=== PATIENT | male | born 1970 | race Caucasian/White ===

== ENCOUNTER 2020-04-17 15:09 | Outpatient (REF) | payer BC, SELFPAY ==
[2020-04-20 20:34] LABS: Patient Race White; SARS-CoV-2 RNA Undetected (Undetected); SARS-CoV-2 Specimen Source Nasopharynx
== END 2020-04-17 15:29 ==
LOC: NCHCN 15:09
PROVIDERS: PCP Nurse Practitioner Family; Visit Provider Family Medicine
DX: Z20.828 Contact with and (suspected) exposure to other viral communicable diseases (principal)
CPT/HCPCS: U0003

== ENCOUNTER 2021-06-22 16:18 | Outpatient (REF) | payer BC, SELFPAY ==
[2021-06-22 15:46] LABS: Calculated LDL 122 mg/dL (<100); Cholesterol 225 mg/dL (<200); HDL Cholesterol 60 mg/dL (40-60); Hemoglobin A1C 5.5 % (<5.7); TSH (W/Ref FT4) 2.07 uIU/mL (0.36-3.74); Triglyceride 215 mg/dL (<150)
[2021-06-23 09:57] LABS: Hepatitis C Ab w Rflx HCV PCR Negative (Negative)
[2021-06-23 10:33] LABS: HBs Antibody, Quant 5.5 mIU/mL (See Note); Hepatitis B Surface Ab Negative (See Note)
[2021-06-23 10:48] LABS: HIV-1/2 Ag & Ab Screen Negative (Negative); Hepatitis B Surface Ag Negative (Negative)
[2021-06-23 11:39] LABS: Hep A Total Ab w Rflx IgM Negative (Negative)
== END 2021-06-22 16:19 | disposition home or self-care (01) ==
LOC: LBN 16:18
PROVIDERS: PCP Nurse Practitioner Family; Visit Provider Family Medicine
DX: Z00.00 Encounter for general adult medical examination without abnormal findings (principal); Z11.4 Encounter for screening for human immunodeficiency virus [HIV]; Z11.59 Encounter for screening for other viral diseases
CPT/HCPCS: 80061; 86706; 86709; 86803; 87340; 87389; 83036; 84443

== ENCOUNTER 2021-09-07 14:57 | Outpatient (REF) | payer SELFPAY ==
--- NOTE | 2021-09-07 15:00 | RT.EKG_ITS ---
APPROVED REPORT Exam: Resting ECG Reason for Exam: Baseline screening, [employer] Pre-Employment Patient Location: O HR:61 bpm ECG Measurements Heart Rate 61 AXIS WI 172 P 30 QRSd 100 QRS -3 QT 398 T 19 QTc 402 Conclusion Sinus rhythm...normal P axis, V-rate 60- 99 Normal Electrocardiogram
--- NOTE | 2021-09-08 15:28 | W.PFT ---
Date of service: 09/07/21 Time of Service: 15:03 Pulmonary Function Test Result Requesting Provider Celena Quiroga Indications: Pre-employment screening Interpretation Spirometry: There is no airflow limitation. Impression Normal spirometry Clinical Correlation therefore is recommended.
== END 2021-09-07 14:58 | disposition home or self-care (01) ==
LOC: RT 14:57
PROVIDERS: PCP Nurse Practitioner Family; Visit Provider Nurse Practitioner Family
DX: Z02.1 Encounter for pre-employment examination (principal)
CPT/HCPCS: 94010; 93005; 93010

== ENCOUNTER 2021-09-08 02:29 | Outpatient (CLI) | payer BC, SELFPAY ==
[2021-09-08 16:26] LABS: HCT 43.5 % (40.0-50.0); HGB 14.4 g/dL (13.5-17.5); MCH 29.9 pg (27.0-33.0); MCHC 33.1 % (32.0-36.0); MCV 90.2 fL (80-95); MPV 9.1 fL (8.0-11.0); Platelet Count 225 10^3/uL (130-400); RBC 4.82 10^6/uL (4.36-5.78); RDW 11.9 % (11.8-14.1); RDW-SD 39.1 fL
[2021-09-08 16:37] LABS: Bilirubin Negative (Negative); Blood Trace-intact (Negative); Clarity Clear (Clear); Glucose Negative (Negative); Ketones Negative (Negative); Leukocyte Esterase Negative (Negative); Nitrite Negative (Negative); Specific Gravity >= 1.030 (1.005-1.025); Urobilinogen 0.2 EU/dL (Up TO 0.2)
[2021-09-08 16:43] LABS: Bacteria Negative HPF (Negative); C & S Indicated? No; Casts Negative LPF (Negative); Crystals Negative HPF (Negative); Epithelial Cells Few HPF (Negative); Mucus Negative (Negative); Other Cells Negative (Negative); RBC 0-2 HPF (0-2); WBC Negative HPF (0-5)
[2021-09-08 18:02] LABS: ALT 35 U/L (16-63); AST 21 U/L (15-37); Alkaline Phosphatase 77 U/L (46-116); Anion Gap 8.7 mmol/L (3-11); BUN 25 mg/dL (7-18); Bilirubin, Direct 0.1 mg/dL (0.0-0.2); Bilirubin, Total 0.5 mg/dL (0.2-1.0); CO2 28.3 mmol/L (21.0-32.0); CREATININE 1.1 mg/dL (0.70-1.30); Calcium 9.4 mg/dL (8.5-10.1); Chloride 102 mmol/L (98-107); Glucose 101 mg/dL (74-106); Potassium 3.7 mmol/L (3.5-5.1); Sodium 139 mmol/L (136-145); Total Protein 7.1 g/dL (6.4-8.2)
== END 2021-09-08 02:30 | disposition home or self-care (01) ==
LOC: LBO 02:29
PROVIDERS: PCP Nurse Practitioner Family; Visit Provider Nurse Practitioner Family
DX: Z13.9 Encounter for screening, unspecified (principal)
CPT/HCPCS: 36415; 80048; 80076; 85027; 81003; 81015

== ENCOUNTER 2022-01-25 17:47 | Outpatient (REF) | payer BC, SELFPAY ==
--- NOTE | 2022-01-25 17:15 | SKI_PTH ---
PATIENT: Williams Heller LOC: [facility] #:[id number] AGE/SX: 51/M ROOM: RE01/25/[address]: Tariq Coffey : 1970 BED: DIS: 01/25/2022 SPEC #: [id number] RECD: 01/26/22 08:44 STATUS: MOLLY REQ #: [id number] RANDY: 01/25/22 17:[address]: Tariq Coffey DEPT: Surgical Specimen RECD BY: Nancy Franz ENTERED: 01/26/22 08:45 SP TYPE: RAAD OT DR: Carissa Rhoades Tissues: 1 - SKIN BIOPSY(SHAVE/PUNCH) Procedures: SKIN LEVEL 4 Comments: [id number]
== END 2022-01-25 17:48 | disposition home or self-care (01) ==
LOC: LBN 17:47
PROVIDERS: PCP Nurse Practitioner Family; Visit Provider Family Medicine
DX: L43.9 Lichen planus, unspecified (principal)
CPT/HCPCS: 88305

== ENCOUNTER 2022-04-01 09:11 | Day surgery (SDC) | payer BC, SELFPAY ==
--- NOTE | 2022-03-31 19:01 | COLE_ITS ---
Colonoscopy Report Date of procedure: 04/01/22 Pre-op diagnosis general: CRC screen Post-op diagnosis procedure note: other (Diverticula) Surgeon: Keshia Fairbanks Anesthesia Type: General:No Airway Estimated blood loss (mL): 0 Pathology: none sent Complications: None Disposition: same day Prep: Miralax/Dulcolax Retraction Time: 8 Procedure Description: After informed consent was obtained the patient was taken to the procedure room and placed in a left decubitous position. Monitors were applied and a time out was done. The patients name, date of , procedure, allergies to medications and metal in their body was reviewed. The patient was then sedated. Once sedat ed and comfortable a rectal exam was done. External exam was normal. Internal exam revealed a normal sphincter tone and no palpable masses. The prostate nl The scope was then introduced and retrofelexed. No internal hemorrhoids were identified. The scope was then advanced to the cecum without difficulty. The TI and appendiceal orifice were identified. The prep was BB PS 2 in all segments for total of 6. The scope was then slowly retracted over 8 minutes back into the rectum. There are no polyps visualized today. He has minor diverticular disease that does extend all the way over to the transverse colon. There is no signs of active bleeding or infection. The mucosa is pink and healthy with a normal vascular pattern.. The scope was removed and the patient was woken up and taken back to Same day surgery in stable condition. The patient tolerated the procedure well and there were no immediate complications. Follow up: The patient should follow up in 10 years unless they develop changes in bowel habits or other new gastrointestinal complaints.
--- NOTE | 2022-03-31 19:02 | PDOC.DSDIS_ITS ---
Discharge Plan Disposition Patient Disposition: HOME Condition: Good Discharge Details Reason For Visit: colon scope Attending Provider: Keshia Fairbanks Primary Care Provider: Tariq Coffey Home Meds and New Rx's Prescriptions: Continued bupropion HCl 150 mg tablet extended release 24 hr 150 mg PO QAM Discontinued bisacodyl [Dulcolax (bisacodyl)] 5 mg tablet,delayed release (DR/EC) 5 mg PO ONCE Qty: 4 0RF Rx Instructions: Take according to provider's instructions for colonoscopy prep. polyethylene glycol 3350 17 gram/dose powder 17 g PO ONCE Qty: 238 0RF Rx Instructions: To be taken as directed by prescriber's office for colonoscopy prep. Discharge Instructions Additional Instructions: DSU Colonoscopy Post- Op Instructions Instructions for Everyone who is given Anesthesia: For your safety, please do the following for the next twenty-four (24) hours: *Do Not operate a motor vehicle (car, truck, motorcycle, etc.) *Do Not drink alcoholic beverages or use any recreational drugs for the first 24 hours or while taking pain medications. The medications in your body may have a reaction that can be dangerous. *Do Not make any important decisions or sign any important papers. Findings: -Minor diverticula. Make sure you are moving your bowels on a regular basis and not straining to go to the bathroom Follow up: Repeat colonoscopy in 10 years time 1. No lifting over 20 pounds or strenuous activity for the first 24 hours after your procedure. After 24 hours there are no restrictions on your activity but you may feel fatigued for a few days. 2. After you arrive home you may have a light meal and return to your normal diet as you can tolerate it without feeling sick to your stomach. 3. You may have a bloated, gaseous feeling in your belly (abdomen) after a colonoscopy. Passing gas and belching will help. Walking or lying down on your left side with your knees flexed may relieve the discomfort. Call the office at [phone] (Office) or [phone] (Hospital) right away if you notice any of the following: a.Vomiting of blood or ?coffee ground stools?. b.Rectal bleeding 1Tbsp, blood clots or continuous bleeding. c.Severe belly (abdominal) pain. d.A hard distended belly (abdomen) and an inability to pass gas. 4. Please don?t expect to have a normal BM (bowel movement) for 2-3 days after your procedure. 5. If there are questions regarding the findings of your procedure, please contact your doctor 6. If you are unable to contact your doctor with a problem, contact the hospital at [phone]. 7. Continue all your regular medications unless directed otherwise. I understand the above instructions and have no questions. Signature of Patient or Adult Escort Name of Responsible Adult Escort Signature of Nurse Date/Time Activity:: see above Diet:: see above Discharge Orders Discharge Orders: Discharge Order (Routine); Ordered 03/31/22 Ordered By: Keshia Fairbanks DS: Diagnosis Discharge Diagnosis (1) Diverticula of colon: Status: Acute
[2022-04-01 09:15] VITALS: BP 129/88; PULSE 70; RESP 18; TEMP 36.1; O2SAT 100
[2022-04-01] MEDS: Lactated Ringers 1,000 ML 80 ML IV (09:22)
--- NOTE | 2022-04-01 09:49 | W.ANESPRE ---
General Info Date of Service Date Performed: 04/01/22 Height: 5 ft 10 in Weight: 108.6 kg Body Mass Index (BMI): 34.3 Surgical Procedure: Operation Date: 04/01/22 09:50 Proposed Procedure Side Surgeon roscoe Fairbanks DO Meds Allergies and Home Medications Allergies Allergy/AdvReac Type Severity Reaction Status Date / Time No Known Allergies Allergy Verified 04/01/22 09:28 Home Medication Medication Instructions Recorded bupropion HCl 150 mg 24 hr tablet, 150 mg PO QAM 08/19/21 extended release Current Visit Medications: Current Medications Generic Name Dose Route Start Last Admin Trade Name Freq PRN Reason Stop Dose Admin Hyoscyamine Sulfate 0.125 mg 03/31/22 19:00 Hyoscyamine 0.125 Mg Sl/Oral/Chew SL DIRECTED PRN Ringer's Solution 1,000 mls @ 80 mls/hr 04/01/22 06:00 04/01/22 09:22 IV 04/30/22 23:59 80 mls/hr INFUSION TASIA Administration IV Miscellaneous Supplies 1 each 04/01/22 06:00 Iv Access IV 04/30/22 23:59 DIRECTED TASIA Ondansetron HCl 4 mg 03/31/22 19:00 Ondansetron 4 Mg/2 Ml Vial IVP Q4H PRN PRN Nausea / Vomiting Sodium Chloride 0 ml 04/01/22 06:00 Normal Saline Flush 10 Ml Syr IV 04/30/22 23:59 PRN PRN Sodium Chloride 0 ml 04/01/22 06:00 Normal Saline 10 Ml Vial IJ 04/30/22 23:59 DIRECTED PRN Sterile Water 0 ml 04/01/22 06:00 Water,Injection,Sterile 10 Ml Vial IJ 04/30/22 23:59 DIRECTED PRN PFSH Active Problems Active Problems: Problem Status Onset Code Screening due Z13.9 Medical History Medical History Depression Palpitations Per pt. stated he was drinking too much coffee, and hasn't had any issues in 6-8 months Sebaceous cyst Skin lesion Sleep apnea Tobacco Smoking/Tobacco Use Status: Never Alcohol Alcohol Intake: current Alcohol intake frequency: a few times a month Substance Use Substance use: Never Substance use type: does not use Vital Signs and Lab Results Vital Signs Most Recent Vital Signs in EMR: Most Recent Vital Signs Temp Pulse Resp BP Pulse Ox 36.1 C L 70 18 129/88 100 04/01/22 09:15 04/01/22 09:15 04/01/22 09:15 04/01/22 09:15 04/01/22 09:15 Lab Results Blood Type / Crossmatch: No Data to Display Complete Blood Count: No Data to Display Complete Metabolic Panel: No Data to Display Liver Function Panel: No Data to Display Coagulation Panel: No Data to Display Cardiac Panel: No Data to Display Arterial Blood Gas: No Data to Display Venous Blood Gas: No Data to Display Pancreas Panel: No Data to Display Thyroid Panel: No Data to Display Infectious Disease: No Data to Display Blood Cultures: No Data to Display Toxicology Panel: No Data to Display Imaging and Studies Imaging and Studies Study information below may be from another EMR and interpreted by another provider. Please see original notes in EMR for more complete details. EKG Summary: 09/07/2021: Conclusion Sinus rhythm...normal P axis, V-rate 60- 99 Normal Electrocardiogram Pulmonary Function Summary: 09/08/2021: Pulmonary Function Test Result Requesting Provider Celena Quiroga Indications: Pre-employment screening Interpretation Spirometry: There is no airflow limitation. Impression Normal spirometry Clinical Correlation therefore is recommended. Anesthesia Assessment and Plan Anesthesia History Personal History: No History of Anesthesia Complications Family History: No Family History of Anesthesia Complications Exercise Tolerance Exercise Tolerance: Metabolic Equivalents>4 Pertinent Negatives Pertinent Negatives: No Symptoms of GERD, No Major Cardiovascular Symptoms or Complaints and No Major Pulmonary Symptoms or Complaints Cardiac & Pulmonary Exam Cardiac Exam: Normal S1/S2 Heart Sounds Pulmonary Exam: Clear Bilateral Breath Sounds Implantable Cardiac Device Does patient have a Pacemaker or an ICD?: No Airway Exam Known Difficult Airway: No Mallampati Class: 2 Mouth Opening: Normal (> 3cm) Thyromental Distance: Greater than 3 cm Neck Range of Motion: Full ROM Neck Circumference: Thick Teeth Condition: Normal Dentition ASA Classification ASA Score: ASA 2 Emergency Case?: No NPO Status NPO Status: NPO Clears >2 hours, Solids >8 hours Anesthesia Plan Resuscitation Status: Full Code Anesthesia Technique: General Anesthesia Airway Planned: Natural Airway Monitors Used: Standard Monitors
[2022-04-01 09:53] VITALS: BMI 34.3
[2022-04-01 10:57] VITALS: BP 109/74; PULSE 59; RESP 18; TEMP 36.4; O2SAT 95
--- NOTE | 2022-04-01 11:15 | W.ANESPOSTOP ---
Postoperative Evaluation Date, Time and Location Date Performed: 04/01/22 Time Performed: 11:15 Patient Location: Day Surgery Unit Vital Signs Most Recent Imported Vital Signs: Most Recent Vital Signs Temp Pulse Resp BP Pulse Ox 36.4 C L 59 L 18 109/74 95 04/01/22 10:57 04/01/22 10:57 04/01/22 10:57 04/01/22 10:57 04/01/22 10:57 Pain Score Most Recent Pain Score: Most Recent Pain Score Pain Level 0 04/01/22 10:57 Assessment Mental Status: Awake (Alert & Oriented to Patient Baseline) Airway and Respiratory Function: Patent airway with normal (patient baseline) respiratory exam Cardiovascular Function: Hemodynamically Stable Hydration Status: Adequately Hydrated Nausea & Vomiting: No Nausea or Vomiting Pain: Pt. Denies Any Pain Peripheral Nerve Block: Patient did not receive a nerve block
[2022-04-01 11:24] VITALS: BP 112/71; PULSE 52; RESP 16; TEMP 37; O2SAT 95
== END 2022-04-01 12:05 | disposition home or self-care (01) ==
PROVIDERS: PCP Family Medicine; Visit Provider Surgery
PROC: 0DJD8ZZ Inspection of Lower Intestinal Tract, Via Natural or Artificial Opening Endoscopic (ICD-10-PCS; CPT 45378; principal; 2022-04-01 09:45)
DX: Z12.11 Encounter for screening for malignant neoplasm of colon (principal); K57.30 Diverticulosis of large intestine without perforation or abscess without bleeding
CPT/HCPCS: 45378

== ENCOUNTER 2023-01-23 16:17 | Emergency (ER) | payer BC, SELFPAY ==
[2023-01-23] VITALS (75 sets, daily range): BP systolic 112–149; BP diastolic 68–98; PULSE 62–112; RESP 12–25; TEMP 37.2; O2SAT 92–100
--- NOTE | 2023-01-23 16:15 | RT.EKG_ITS ---
APPROVED REPORT Exam: Resting ECG Reason for Exam: chest pain Patient Location: E HR:110 bpm ECG Measurements Heart Rate 110 AXIS DE 166 P 32 QRSd 97 QRS -15 QT 312 T 14 QTc 423 Conclusion Sinus tachycardia...rate> 99 Probable left atrial enlargement...P >50mS, <-0.10mV V1 Narrow complex sinus tachycardia at a rate of 110. Left axis deviation no signs of LVH based on volt age criteria. No ST segment abnormalities. T wave flattening in the aVF. Compared to prior dated l ast year sinus tachycardia is new as his T wave flattening in aVF.
--- NOTE | 2023-01-23 16:19 | W.ED.GENAD ---
Discharge Plan Disposition Patient Disposition: Home Discharge Details Clinical Impression: Chest pain, unspecified, Near syncope Primary Care Provider: Tariq Coffey ED Provider: Tariq Alegre Home Meds and New Rx's Prescriptions: Continued bupropion HCl 150 mg tablet extended release 24 hr 150 mg PO QAM Discharge Instructions Additional Instructions: Please read all of the information that accompanies these instructions. You were seen in the emergency department for your chest discomfort. Your EKG showed no sign of a heart attack. Your CAT scan showed no sign of any damage to the large blood vessels in your chest. Please schedule an appointment with your primary care provider later this week. Please return to the emergency department if pass out develop chest pain with any sweating or if you have any other concerns. As we discussed, you may benefit from a echocardiogram of your heart which is an ultrasound. You may also benefit from a sleep study. Medical Decision Making This is an overall well-appearing normothermic and tachycardic 52-year-old male discomfort in his chest and abdomen concerning for the possibility of aortic dissection. Patient does have elevated BMI making him high risk for ACS. Will trend troponins in setting of his nonischemic ECG. No vomiting to suggest esophageal rupture. Given his epigastric discomfort we will also obtain a lipase to assess for pancreatitis. No significant shortness of breath to suggest PE. Not an alcoholic to suggest increased risk for cirrhosis. No rash to abdomen to suggest zoster. Clear lungs and no history of trauma so I am not concerned for pneumothorax. Not hypotensive to suggest increased risk for tamponade. No pain out of proportion to suggest necrotizing soft tissue infection. Will reassess following labs and CT scan. No tick exposures nor first-degree AV block so my suspicion is low for Lyme carditis. No fevers to suggest COVID. We will treat with Mylanta and famotidine in the event that there is a component of reflux. Patient also endorses history of waking up at night feeling short of breath. It is certainly possible that he could have obstructive sleep apnea given his elevated BMI. Obstructive sleep apnea certainly could lead to pulmonary hypertension which could cause shortness of breath. He would likely benefit from an echocardiogram and/or possibly pulmonary function tests. 6:25 PM Comprehensive metabolic panel with no ANGELA mild hyperglycemia no anion gap to suggest DKA. Reassuring LFTs. Normal lipase. Initial negative normal troponin. CBC with no anemia thrombocytopenia nor leukocytosis. I have advised patient to follow-up with his primary care provider next week. 8:10 PM Repeat troponin negative. Patient felt slightly improved following famotidine and Mylanta. Advised PCP follow-up and gave return indications including any shortness of breath syncope falls chest pain associated with diaphoresis or any chest pain associated with arm radiation. In the setting of syncope I considered: High risk features: 1. Age of the patient (elderly a greatest risk) 2. Syncope during exertion 3. Family history of sudden [place] syncope rule: 1. History of CHF 2. Hematocrit < 30 3. EKG abnormalities 4. Present shortness of breath 5. Systolic blood pressure less than 90 Cardiac arrhythmia/EKG or abnormalities considered: 1. ACS: No ST changes 2. Tachy-azul: No blocks 3. WPW: No delta wave 4. Brugada: No RSR'; R-bundle appearance 5. HCM: No LVH; needle Qs/ T-wave inversions 6. Short/ Long QT: 300 < QTc < 500; no family hx 7. Arrhythmogenic Right Ventricular Dysplasia: No epsilon wave, no inverted Ts in anterior precordium I am HEART SCORE Chest pain Diagnostic Protocol: [-History/Physical/Gestalt: Slightly Suspicious (0)] [- EKG: Nonspecific repolarization (+1)] [- AGE: 45-65 (+1)] [- RISK FACTORS: 1 - 2 risk factors (+1)] [-TROPONIN: <= normal limit (0)] - TOTAL SCORE: 3 - Risk Factors: DM, current or recent smoker, HTN, HLD, family hx of CAD, obesity - INTERPRETATION: With a total score of 3 or less, risk of major cardiac event within six weeks 1.7%, likely lower with two negative troponins. [I explained to the patient that the risk of subsequent major cardiac event within 1 month is not 0, however risk predicted to be less than 2%. Patient verbalized understanding, accepts this risk and shared and the decision for discharge with PCP follow-up for further evaluation and management. They understand to return to the ED immediately with any worsening symptoms, new symptoms or other concerns.] HPI General Date/Time Provider Initiated Documentation: 01/23/23 16:19. HPI Narrative: This is a previously healthy 52-year-old male on bupropion presenting to the emergency department in the setting of chest pain which he describes as indigestion and a pressure. He reports that he has also had near syncope. He was at work yesterday and felt tunnel vision. He was able to lower himself to the ground he did not fall nor strike his head. 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 He endorses indigestion for the past several weeks. He has no history of hypertension hyperlipidemia nor diabetes. There is no family history of premature coronary artery disease. He has not been short of breath nor had any cough. He drinks alcohol approximately once a week but denies routine tobacco and illicits. He has not is taken no recent falls. He denies any vomiting. Related Data Home Medications Medication Instructions Recorded Confirmed bupropion HCl 150 mg 24 hr tablet, 150 mg PO QAM 08/19/21 01/23/23 extended release Allergies Allergy/AdvReac Type Severity Reaction Status Date / Time No Known Allergies Allergy Verified 01/23/23 16:24 PFSH All Active Problems (Updated 01/23/23 @ 20:40 by Tariq Alegre MD) Chest pain, unspecified (Acute) Near syncope (Acute) Diverticula of colon (Acute) repeat CE in 2031 Medical History (Updated 01/23/23 @ 20:40 by Tariq Alegre MD) Depression Palpitations Per pt. stated he was drinking too much coffee, and hasn't had any issues in 6-8 months Sebaceous cyst Skin lesion Sleep apnea Social History Smoking/Tobacco Use Status: Never Smoking risk assessment performed?: Yes Alcohol Intake: current Alcohol Intake frequency: a few times a month Alcohol type: beer Drug use: Never Substance use type: does not use Housing: house Do you feel safe at home: Yes Do you feel safe in your relationship?: Yes Exam Narrative Exam Narrative: General: Well-appearing in no acute distress speaking in complete sentences. Head: Normocephalic, atraumatic. Eye: Pupils equal, round reactive to light. Extraocular eye movements intact. No conjunctival injection. No scleral icterus. Ear, nose, mouth, throat: Grossly normal inspection. Normal voice, handling secretions normally. Neck: Trachea midline. Cardiovascular: Well-perfused distal extremities. Regular rate and rhythm Respiratory: Nonlabored respiration. Clear lungs bilaterally. Soft nontender abdomen. Gastrointestinal: Nondistended abdomen. Musculoskeletal: No edema. Moving all 4 extremities spontaneously. Skin: Normal for age and race, grossly normal temperature and turgor. No acute rash. Neurologic: Alert and appropriate, no apparent acute deficits. Psychiatric: Mood and manner are appropriate. Grooming and personal hygiene are appropriate.
--- NOTE | 2023-01-23 16:30 | DI.CT_ITS ---
Exam(s) CT THORAX ABD/PEL CTA EXAM: CT THORAX ABD/PEL CTA CLINICAL HISTORY: Concern for dissection with chest pain and abdomen. TECHNIQUE: Imaging Protocol: Axial CT angiography was performed with multi-slice acquisition and mu lti-planar and/or 3D reconstructions. CONTRAST MATERIAL: Intravenous: Omnipaque 350 Contrast volume:100 ml Intravenous: Omnipaque 350 Contrast volume:125 mL contrast route:IV - COMPARISON: CR XR CHEST 2V PA LATERAL from 09/08/2021 FINDINGS: CHEST: Pulmonary Arteries: No evidence of filling defect to suggest pulmonary emboli. Tracheobronchial tree: Patent where visualized. Mediastinum and Breanna: No dominant adenopathy or fluid collection. Pulmonary parenchyma: No consolidation or dominant measurable mass. Pleura: No effusion or pneumothorax. Heart: The heart is not dilated. No coronary artery calcifications are seen. Aorta: Thoracic aorta non-dilated. No visible atherosclerotic changes. No evidence of dissection Bones: Degenerative changes in the thoracic spine Tubes, Catheters, and Lines: None ABDOMEN: Liver: Mildly enlarged. Severe hepatic steatosis. No measurable mass. Portal, Superior Mesenteric, and Splenic Veins: Unremarkable. Gallbladder and Biliary Tract: No radiodense calculus or dilation. Pancreas: Normal density, no abnormal calcifications or inflammatory process. Spleen: Normal. Adrenals: No masses seen. Kidneys: Normal size, contour and axis. No radiodense stones or obstructive uropathy. No masses seen. Vasculature:: Abdominal aorta non-dilated. No visible atherosclerotic changes. No evidence of dis section. Celiac axis SMA, DARON and renal arteries normal diameter. Iliac and upper femoral arteries normal diameter. Bowel: Mild diverticulosis. No evidence of diverticulitis. No obstruction or bowel wall thickening. Appendix is unremarkable. Peritoneal Cavity: No ascites, collection or mesenteric inflammatory response. Lymph Nodes: Within normal limits. Bones: Unremarkable. Soft Tissues: Unremarkable. PELVIS: Bladder: Symmetric distention, no gross wall thickening. Reproductive Organs: Unremarkable as visualized. Lymph Nodes: Within normal limits. Bones: Within normal limits. IMPRESSION: 1. No evidence of pulmonary embolism. . No evidence of aortic dissection or aneurysm. 2. No acute abnormality in the chest abdomen or pelvis.. RADIATION DOSE DELIVERED: 1,267.82mGy.cm Total DLP 1,267.82mGy.cm Total DLP DATA REPOSITORY: All CT scans at this facility are submitted to the National Radiology Data Registry (NRDR) Dose Index Registry (DIR) with the [employer] (ACR). RADIATION OPTIMIZATION: All CT scans at this facility use at least one of these dose optimization te chniques: automated exposure control; mA and/or kV adjustment per patient size (includes targeted exa ms where dose is matched to clinical indication); or iterative reconstruction.
[2023-01-23 16:45] LABS: Abs Immature Grans 0.03 10^3/uL (0.0-0.06); Absolute Basophil Count 0.03 10^3/uL (0.0-0.2); Absolute Eosinophil Count 0.12 10^3/uL (0.0-0.7); Absolute Lymphocyte Count 3.01 10^3/uL (1.2-3.4); Absolute Monocyte Count 0.56 10^3/uL (0.1-0.8); Absolute Neutrophil Count 4.26 10^3/uL (1.2-6.7); Basophils % 0.4; Eosinophils % 1.5; HGB 16.2 g/dL (13.5-17.5); Immature Grans % 0.4; Lymphocytes % 37.6; MCH 29.6 pg (27.0-33.0); MCHC 34.5 % (32.0-36.0); MCV 86 fL (80-95); MPV 8.8 fL (8.0-11.0); Neutrophils % 53.1; Platelet Count 262 10^3/uL (130-400); RBC 5.48 10^6/uL (4.36-5.78); RDW 11.9 % (11.8-14.1); RDW-SD 37.2 fL; WBC 8.01 10^3/uL (4.4-10.8)
[2023-01-23] MEDS: Normal Saline 500 ML IV (16:45)
[2023-01-23 17:03] LABS: ALT 34 U/L (16-63); AST 18 U/L (15-37); Albumin 4.2 g/dL (3.4-5.0); Alkaline Phosphatase 87 U/L (46-116); Anion Gap 10.9 mmol/L (3-11); BUN 27 mg/dL (7-18); Bilirubin, Total 0.5 mg/dL (0.2-1.0); CO2 24.1 mmol/L (21.0-32.0); CREATININE 1.3 mg/dL (0.70-1.30); Chloride 103 mmol/L (98-107); Glucose 118 mg/dL (74-106); Lipase 71 U/L (16-77); Potassium 3.7 mmol/L (3.5-5.1); Sodium 138 mmol/L (136-145); Troponin I < 50 ng/L (<or=60)
[2023-01-23] MEDS: Omnipaque 350 MG/ML 50 ML BTL 25 ML IJ (18:08)
[2023-01-23] MEDS: Normal Saline - Diluent 50 ML VIAL IJ (18:08)
[2023-01-23] MEDS: Omnipaque 350 MG/ML 100 ML BTL IJ (18:24)
[2023-01-23] MEDS: Normal Saline Flush 10 ML SYR IVP (18:24)
--- NOTE | 2023-01-23 18:40 | DI.VRAD_ITS ---
PROCEDURE INFORMATION: Exam: CTA Chest With Contrast CTA Abdomen and Pelvis With Contrast Exam date and time: 01/23/2023 18:11 Age: 52 years old Clinical indication: Other: Concern for dissection with chest pain and abdomen TECHNIQUE: Imaging protocol: Computed tomographic angiography of the chest with contrast. Exam focused on the arteries. Computed tomographic angiography of the abdomen and pelvis with contrast. Exam focused on the arteries. 3D rendering (Not supervised by radiologist): MIP and/or 3D reconstructed images were created by the technologist. Radiation optimization: All CT scans at this facility use at least one of these dose optimization techniques: automated exposure control; mA and/or kV adjustment per patient size (includes targeted exams where dose is matched to clinical indication); or iterative reconstruction. Contrast material: OMNI 350; Contrast volume: 125 ml; Contrast route: INTRAVENOUS (IV); COMPARISON: CR XR CHEST 2V PA LATERAL 09/08/2021 16:03 FINDINGS: VASCULATURE: Pulmonary arteries: No pulmonary emboli. Aorta: No aortic aneurysm. No aortic dissection. Celiac trunk and mesenteric arteries: No occlusion or significant stenosis. Renal arteries: No occlusion or significant stenosis. Right iliac arteries: No occlusion or significant stenosis. Left iliac arteries: No occlusion or significant stenosis. CHEST: Lungs: No airspace consolidation. Pleural spaces: No pneumothorax. No pleural effusion. Heart: No cardiomegaly. No pericardial effusion. ABDOMEN AND PELVIS: Liver: Fatty liver with no mass lesions. Focal fatty sparing in the liver. Mild hepatomegaly. Gallbladder and bile ducts: No calcified stones. No ductal dilation. Pancreas: No mass. No ductal dilation. Spleen: Mild splenomegaly. Adrenal glands: No mass. Kidneys and ureters: No solid mass. No hydronephrosis. Stomach and bowel: Colonic diverticulosis without diverticulitis. No focal pathology in the small bowel. Appendix: No evidence of appendicitis. Intraperitoneal space: No free air. No significant fluid collection. Urinary bladder: No mass. Reproductive: Mild prostatic enlargement. Lymph nodes: No enlarged lymph nodes. Bones/joints: No acute fracture or subluxation. Soft tissues: Unremarkable. IMPRESSION: 1. No acute findings. 2. Incidental findings as described. Dictated and Authenticated by: Marium Valles MD. Ordering:RAMESH Potter MD
[2023-01-23] MEDS: Famotidine 20 MG/2 ML VIAL 40 MG IVP (18:58)
[2023-01-23] MEDS: Mylanta Suspension 30 ML CUP PO (19:00)
[2023-01-23 19:49] LABS: Troponin I < 50 ng/L (<or=60)
== END 2023-01-23 20:40 | disposition home or self-care (01) ==
PROVIDERS: Emergency Provider Emergency Medicine; PCP Family Medicine
DX: R55 Syncope and collapse (principal); R07.9 Chest pain, unspecified; R00.0 Tachycardia, unspecified; E11.65 Type 2 diabetes mellitus with hyperglycemia; I10 Essential (primary) hypertension; E78.5 Hyperlipidemia, unspecified; E66.9 Obesity, unspecified
CPT/HCPCS: 36415; 71275; 80053; 83690; 93005; 96361; 96374; 99285; 74174; 84484; 85025; 93010; 99283; J3490; Q9967

== ENCOUNTER → 2023-11-23 15:14 | Outpatient (CLI) | payer OTHER, SELFPAY ==
--- NOTE | 2023-11-23 | DI.RAD_ITS ---
Exam(s) XR LUMBAR SPINE COMPLETE EXAM: XR LUMBAR SPINE COMPLETE CLINICAL HISTORY: LOW BACK PAIN M54.50. TECHNIQUE: 2D digital imaging was performed. Five views. COMPARISON: CT CT THORAX ABD/PEL CTA from 01/23/2023 FINDINGS: BONES: No fracture or destructive lesion. Vertebral body heights are maintained. Moderate facet hype rtrophy identified 4 5 and L5-S1. No spondylolysis. DISKS: Mild narrowing of the L 3 4 through L5-S1 disc spaces. Small endplate osteophytes at these le vels. The remaining intervertebral disc spaces are maintained. ALIGNMENT: Lumbar spinal alignment is within normal limits. SOFT TISSUE: Normal. IMPRESSION: Degenerative changes, greatest of the facet joints at L4-5 and L5-S1. DATA REPOSITORY: RADIATION DOSE DELIVERED:
== END ==
PROVIDERS: PCP Family Medicine; Visit Provider Physician Assistant Medical
DX: M51.37 Other intervertebral disc degeneration, lumbosacral region (principal)
CPT/HCPCS: 72110

== ENCOUNTER → 2024-01-30 01:37 | Outpatient (CLI) | payer OTHER, SELFPAY ==
--- NOTE | 2024-01-30 08:00 | DI.MRI_ITS ---
Exam(s) MR LUMBAR SPINE WO EXAM: MR LUMBAR SPINE WO CLINICAL HISTORY: Persistent lumbar back pain with radiculopathy,m54.16. TECHNIQUE: Multiplanar multisequence MRI of the Lumbar spine was performed. COMPARISON: CR XR LUMBAR SPINE COMPLETE from 11/23/2023 FINDINGS: Bones: The last intervertebral disc space is designated the L5/S1 level for the numbering purpose of this ex amination. The vertebral body heights are well maintained. Alignment: Unremarkable. The marrow signal characteristics are unremarkable. Hemangioma L2 Cord: The conus tip ends at the T12 level. It is of normal size and signal intensity. T12-L1: No focal disc herniation is present. No central spinal canal stenosis.No neural foraminal st enosis. L1-2: No focal disc herniation is present. No central spinal canal stenosis.No neural foraminal sten osis. L2-3: No focal disc herniation is present. No central spinal canal stenosis.No neural foraminal solomon nosis. L3-4: Mild concentric disc bulging.No focal disc herniation is present. No central spinal canal solomon nosis.No neural foraminal stenosis. L4-5:Facet degenerative changes. No focal disc herniation is present. No central spinal canal steno sis.No neural foraminal stenosis. L5-S1: Mild facet degenerative changes.No focal disc herniation is present. No central spinal canal stenosis.No neural foraminal stenosis. The visualized SI joints and sacrum are unremarkable. Soft tissues: The paraspinal soft tissues are unremarkable. IMPRESSION: No evidence of disc herniation. Facet degenerative changes at L4-5 and L5-S1. No evidence of significant spinal stenosis or neurofor aminal narrowing. DATA REPOSITORY:
== END ==
PROVIDERS: PCP Student in an Organized Health Care Education/Training Program; Visit Provider Nurse Practitioner Family
DX: M54.16 Radiculopathy, lumbar region (principal)
CPT/HCPCS: 72148

== ENCOUNTER 2024-02-27 18:17 | Outpatient (REF) | payer BC, SELFPAY ==
[2024-02-27 15:38] LABS: Abs Immature Grans 0.01 10^3/uL (0.0-0.06); Absolute Basophil Count 0.03 10^3/uL (0.0-0.2); Absolute Eosinophil Count 0.06 10^3/uL (0.0-0.7); Absolute Lymphocyte Count 1.73 10^3/uL (1.2-3.4); Absolute Monocyte Count 0.43 10^3/uL (0.1-0.8); Absolute Neutrophil Count 3.39 10^3/uL (1.2-6.7); Basophils % 0.5 %; Eosinophils % 1.1 %; HCT 45.5 % (40.0-50.0); HGB 15.2 g/dL (13.5-17.5); Immature Grans % 0.2 %; Lymphocytes % 30.6 %; MCH 30.2 pg (27.0-33.0); MCHC 33.4 % (32.0-36.0); MCV 90 fL (80-95); MPV 9.5 fL (8.0-11.0); Monocytes % 7.6 %; Platelet Count 237 10^3/uL (130-400); RBC 5.04 10^6/uL (4.36-5.78); RDW 11.9 % (11.8-14.1); RDW-SD 39.2 fL; WBC 5.65 10^3/uL (4.4-10.8)
[2024-02-27 16:50] LABS: ALT 18 U/L (16-63); AST 12 U/L (15-37); Albumin 3.9 g/dL (3.4-5.0); Alkaline Phosphatase 72 U/L (46-116); Anion Gap 5.7 mmol/L (3-11); BUN 18 mg/dL (7-18); Bilirubin, Total 0.54 mg/dL (0.2-1.0); CO2 30.3 mmol/L (21.0-32.0); CREATININE 1.1 mg/dL (0.70-1.30); Calcium 9.7 mg/dL (8.5-10.1); Chloride 105 mmol/L (98-107); Estimated GFR 80.27 (mL/min/1.73m2); Glucose 103 mg/dL (74-106); Potassium 4.3 mmol/L (3.5-5.1); Sodium 141 mmol/L (136-145); Total Protein 7.1 g/dL (6.4-8.2)
[2024-02-28 10:41] LABS: Lyme Ab w Rflx to Lyme Confirm Negative (Negative)
[2024-02-28 10:44] LABS: Syphilis Serology (RPR) Negative (Negative)
[2024-03-01 00:10] LABS: Anaplasma phagocytophilum Negative (Negative); B. miyamotoi PCR Negative (Negative); Babesia divergens/MO-1 Negative (Negative); Babesia duncani Negative (Negative); Babesia microti Negative (Negative); Ehrlichia chaffeensis Negative (Negative); Ehrlichia ewingii/canis Negative (Negative); Ehrlichia muris eauclairensis Negative (Negative)
[2024-03-01 14:12] LABS: HLA-B27 Result Negative
== END 2024-02-27 18:18 | disposition home or self-care (01) ==
LOC: NCHCN 18:17
PROVIDERS: PCP Student in an Organized Health Care Education/Training Program; Visit Provider Student in an Organized Health Care Education/Training Program
DX: H20.9 Unspecified iridocyclitis (principal)
CPT/HCPCS: 80053; 86812; 87798; 85025; 86592; 86618

== ENCOUNTER → 2024-02-29 01:24 | Outpatient (CLI) | payer BC, SELFPAY ==
--- NOTE | 2024-02-29 | DI.RAD_ITS ---
Exam(s) XR CHEST 2V PA LATERAL EXAM: XR CHEST 2V PA LATERAL CLINICAL HISTORY: UVEITIS,H20.9. TECHNIQUE: 2D digital imaging was performed. COMPARISON: CR XR CHEST 2V PA LATERAL from 09/08/2021 FINDINGS: 2 views: Heart size is normal. The mediastinum is not widened. Lungs are clear. No infiltrates nor pleural effusions. IMPRESSION: No acute pulmonary findings.No significant change compared to 09/08/2021. DATA REPOSITORY: RADIATION DOSE DELIVERED:
== END ==
PROVIDERS: PCP Student in an Organized Health Care Education/Training Program; Visit Provider Student in an Organized Health Care Education/Training Program
DX: H20.9 Unspecified iridocyclitis (principal)
CPT/HCPCS: 71046

== ENCOUNTER 2025-05-09 16:21 | Outpatient (REF) | payer BC, SELFPAY ==
[2025-05-09 16:08] LABS: Calculated LDL 75 mg/dL (<100); Cholesterol 166 mg/dL (<200); HDL Cholesterol 50 mg/dL (>or=40); Triglyceride 207 mg/dL (<150)
[2025-05-09 16:09] LABS: Hemoglobin A1C 5.5 % (<5.7)
[2025-05-09 21:45] LABS: PSA, Screening 2.7 ng/mL (<=3.5)
== END 2025-05-09 16:22 | disposition home or self-care (01) ==
LOC: NCHCN 16:21
PROVIDERS: PCP Student in an Organized Health Care Education/Training Program; Visit Provider Student in an Organized Health Care Education/Training Program
DX: E78.5 Hyperlipidemia, unspecified (principal); Z13.1 Encounter for screening for diabetes mellitus; Z12.5 Encounter for screening for malignant neoplasm of prostate
CPT/HCPCS: 80061; 84153; 83036